=== PATIENT | male | born 2000 | race Caucasian/White ===

== ENCOUNTER 2018-08-23 19:22 | Emergency (ER) | payer MEDICAID, OTHER ==
[2018-08-23] MEDS: ALBUTEROL 0.083% (NEB) 2.5 MG/3 ML AMP HHN (20:15)
[2018-08-23] MEDS: IPRATROPIUM (NEB) 0.5 MG/2.5 ML AMP HHN (20:15)
[2018-08-23] MEDS: DEXAMETHASONE 10 MG/ML 1 ML INJ IM (20:37)
[2018-08-23] MEDS: DEXAMETHASONE 4 MG/ML 1 ML INJ IV (20:37)
== END 2018-08-23 20:57 | disposition home or self-care (01) ==
LOC: FTE 19:22
DX: J45.901 Unspecified asthma with (acute) exacerbation (principal)
CPT/HCPCS: 94664; 96374; 99284-25

== ENCOUNTER 2018-09-25 01:16 | Emergency (ER) | payer MEDICAID ==
[2018-09-25] MEDS: ALBUTEROL 0.083% (NEB) 2.5 MG/3 ML AMP NEB (01:56)
[2018-09-25] MEDS: IPRATROPIUM (NEB) 0.5 MG/2.5 ML AMP NEB (01:56)
== END 2018-09-25 02:39 | disposition home or self-care (01) ==
LOC: FTE 01:16
DX: J45.901 Unspecified asthma with (acute) exacerbation (principal)
CPT/HCPCS: 94664; 99283-25

== ENCOUNTER 2018-10-31 18:42 | Emergency (ER) | payer MEDICAID ==
[2018-10-31] MEDS: DEXAMETHASONE 10 MG/ML 1 ML INJ PO (19:52)
[2018-10-31] MEDS: ALBUTEROL 0.083% (NEB) 2.5 MG/3 ML AMP NEB (20:10)
[2018-10-31] MEDS: IPRATROPIUM (NEB) 0.5 MG/2.5 ML AMP NEB (20:10)
== END 2018-10-31 20:35 | disposition home or self-care (01) ==
LOC: FTE 18:42
DX: J45.901 Unspecified asthma with (acute) exacerbation (principal)
CPT/HCPCS: 94664; 99283-25

== ENCOUNTER 2019-01-21 06:37 | Emergency (ER) | payer OTHER, MEDICAID ==
[2019-01-21] MEDS: IPRATROPIUM (NEB) 0.5 MG/2.5 ML AMP HHN (07:26)
[2019-01-21] MEDS: ALBUTEROL 0.083% (NEB) 2.5 MG/3 ML AMP HHN (07:26)
[2019-01-21] MEDS: DEXAMETHASONE 10 MG/ML 1 ML INJ IM (07:34)
== END 2019-01-21 08:59 | disposition home or self-care (01) ==
LOC: FTE 06:37
DX: J45.901 Unspecified asthma with (acute) exacerbation (principal)
CPT/HCPCS: 94644; 96372; 99284-25